=== PATIENT | female | born 1955 | race Caucasian/White ===

== ENCOUNTER 2020-12-28 16:27 | Emergency (ER) | payer MEDICARE, BC ==
[2020-12-28] MEDS ORDERED: Sodium Chloride 0.9% 10 ML Syringe FLUSH PRN (17:05)
[2020-12-28] MEDS ORDERED: Sodium Chloride 0.9% 1,000 ML IV SCH (17:15)
--- NOTE | 2020-12-28 18:12 | CT ---
Head CT Technique: Multiple axial sections were obtained through the brain. Intravenous contrast was not utilized. Reconstructed coronal and sagittal images were obtained. Comparison: No prior intracranial imaging is available. Findings: Ventricles along with basal cisterns and sulci over the convexities are within normal limits for the patient's age. Incidental basal ganglia calcification is seen. No other abnormal parenchymal densities are seen. No evidence of intracranial hemorrhage is seen. No midline shift or mass-effect is seen. Bone window settings were reviewed. Opacified left maxillary sinus is noted. Increased density is also noted within the left ethmoid sinus with opacified left frontal sinus. Mastoid sinuses show nothing acute. No acute calvarial abnormality is appreciated. Impression: 1. Sinus findings on the left side which appear to represent fairly prominent chronic sinusitis. 2. No acute intracranial abnormality is appreciated on noncontrast head CT study. Diagnostic code #2
--- NOTE | 2020-12-28 18:45 | EDM.PDOC ---
ED HPI GENERAL MEDICAL PROBLEM - General Chief Complaint: Neurological Problem Stated Complaint: SENT BY WALK IN Time Seen by Provider: 12/28/20 16:52 Source of Information: Reports: Patient History Limitations: Reports: No Limitations - History of Present Illness INITIAL COMMENTS - FREE TEXT/NARRATIVE: The patient presents from the walk in clinic for dizziness and a headache. She had COVID 19 in February of this year. 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 She also had some dizziness and trouble walking. She is seeing a therapist for this. She said today she went to the hairdresser and she put her back to wash her hair and she developed a headache to the base of her skull and she had dizzi ness. The dizziness was worse then she normally has. She has no new numbness or weakness. She has no fever, chills, cough, chest pain, shortness of breath, abdominal pain, nausea or vomiting. She went to the walk in clinic and they sent her up for a possible MRI. Her headache is gone now but she still has some dizziness. Onset: Sudden Duration: Hour(s): Location: Reports: Head Quality: Reports: Ache Severity: Moderate (but gone now) Improves with: Reports: None Worsens with: Reports: None Associated Symptoms: Reports: No Other Symptoms - Related Data Allergies Allergy/AdvReac Type Severity Reaction Status Date / Time contrast dye Allergy Cannot Uncoded 12/28/20 17:13 Remember Home Meds: Home Meds Meclizine [Antivert] 25 mg PO Q6H PRN #30 tab 12/28/20 [Rx] Past Medical History Gastrointestinal History: Reports: Other (See Below) Other Gastrointestinal History: liver transplant Psychiatric History: Reports: Depression Endocrine/Metabolic History: Reports: Diabetes, Type II, Hypothyroidism Oncologic (Cancer) History: Reports: Other (See Below) Other Oncologic History: skin cancer - Infectious Disease History Infectious Disease History: Reports: Novel Coronavirus Social & Family History - Tobacco Use Tobacco Use Status *Q: Former Tobacco User Used Tobacco, but Quit: Yes Month/Year Tobacco Last Used: 30 yrs - Caffeine Use Caffeine Use: Reports: Coffee, Soda, Tea - Recreational Drug Use Recreational Drug Use: No ED ROS GENERAL - Review of Systems Review Of Systems: See Below Constitutional: Reports: No Symptoms HEENT: Reports: No Symptoms Respiratory: Reports: No Symptoms Cardiovascular: Reports: No Symptoms Endocrine: Reports: No Symptoms GI/Abdominal: Reports: No Symptoms : Reports: No Symptoms Musculoskeletal: Reports: No Symptoms Skin: Reports: No Symptoms Neurological: Reports: Dizziness, Headache (gone now) ED EXAM, NEURO - Physical Exam Exam: See Below Exam Limited By: No Limitations General Appearance: Alert, No Apparent Distress Eye Exam: Right Eye: Nystagmus Ears: Normal External Exam Nose: Normal Inspection Head Exam: Atraumatic, Normocephalic Neck: Normal Inspection Respiratory/Chest: No Respiratory Distress, Lungs Clear, Normal Breath Sounds Cardiovascular: Regular Rate, Rhythm, No Edema, No Murmur GI/Abdominal: Soft, Non-Tender, No Organomegaly, No Mass Neurological: Alert, No Motor/Sensory Deficits, Oriented x 3 #1 Interpretation EKG Date: 12/28/20 Time: 17:53 Rhythm: NSR Rate (Beats/Min): 65 [place]: Normal P-Wave: Present QRS: Normal ST-T: Normal QT: Normal Course - Vital Signs Last Recorded V/S: Last Vital Signs Temp 97.2 F 12/28/20 17:03 Pulse 68 12/28/20 17:03 Resp 20 12/28/20 17:03 BP 153/82 H 12/28/20 17:03 Pulse Ox 100 12/28/20 17:03 - Orders/Labs/Meds Orders: Active Orders 24 hr Category Date Time Status Cardiac Monitoring [RC] . DIRECTED Care 12/28/20 17:05 Active Peripheral IV Care [RC] . DIRECTED Care 12/28/20 17:07 Active CORONAVIRUS COVID-19 GABRIELA [MOLEC] Stat Lab 12/28/20 18:05 Ordered Sodium Chloride 0.9% [Normal Saline] 1,000 ml Med 12/28/20 17:15 Active IV ASDIRECTED Sodium Chloride 0.9% [Saline Flush] Med 12/28/20 17:05 Active 10 ml FLUSH ASDIRECTED PRN Peripheral IV Insertion Adult [OM.PC] Stat Oth 12/28/20 17:05 Ordered Medication Orders Sodium Chloride (Normal Saline) 1,000 mls @ 125 mls/hr IV ASDIRECTED LARISA Last Admin: 12/28/20 17:53 Dose: 125 mls/hr Documented by: ERNIE Sodium Chloride (Sodium Chloride 0.9% 10 Ml Syringe) 10 ml FLUSH ASDIRECTED PRN PRN Reason: Keep Vein Open Last Admin: 12/28/20 17:53 Dose: 10 ml Documented by: ERNIE Labs: Laboratory Tests 12/28/20 12/28/20 12/28/20 Range/Units 17:43 17:43 17:43 WBC 3.93 L (3.98-10.04) K/mm3 RBC 4.08 (3.98-5.22) M/mm3 Hgb 12.0 (11.2-15.7) gm/dl Hct 35.6 (34.1-44.9) % MCV 87.3 (79.4-94.8) fl MCH 29.4 (25.6-32.2) pg MCHC 33.7 (32.2-35.5) g/dl RDW Std Deviation 43.0 (36.4-46.3) fL Plt Count 113 L (182-369) K/mm3 MPV 9.9 (9.4-12.3) fl Neut % (Auto) 48.5 (34.0-71.1) % Lymph % (Auto) 37.2 (19.3-51.7) % [place] % (Auto) 9.4 (4.7-12.5) % Eos % (Auto) 4.3 (0.7-5.8) Baso % (Auto) 0.3 (0.1-1.2) % Neut # (Auto) 1.91 (1.56-6.13) K/mm3 Lymph # (Auto) 1.46 (1.18-3.74) K/mm3 [place] # (Auto) 0.37 H (0.24-0.36) K/mm3 Eos # (Auto) 0.17 (0.04-0.36) K/mm3 Baso # (Auto) 0.01 (0.01-0.08) K/mm3 PT (9.7-12.0) SECONDS INR APTT (21.7-31.4) SECONDS Sodium 144 (136-145) mEq/L Potassium 3.9 (3.5-5.1) mEq/L Chloride 109 H (98-107) mEq/L Carbon Dioxide 27 (21-32) mEq/L Anion Gap 11.9 (5-15) BUN 29 H (7-18) mg/dL Creatinine 1.3 H (0.55-1.02) mg/dL Est Cr Clr Drug Dosing 39.63 mL/min Estimated GFR (MDRD) 41 (>60) mL/min BUN/Creatinine Ratio 22.3 H (14-18) Glucose 150 H (70-99) mg/dL POC Glucose (70-99) mg/dL Calcium 9.1 (8.5-10.1) mg/dL Magnesium 2.1 (1.8-2.4) mg/dL Total Bilirubin 0.9 (0.2-1.0) mg/dL AST 24 (15-37) U/L ALT 27 (14-59) U/L Alkaline Phosphatase 52 (46-116) U/L Ammonia 28 (11-32) umol/L Troponin I < 0.017 (0.00-0.056) ng/mL Total Protein 7.0 (6.4-8.2) g/dl Albumin 3.9 (3.4-5.0) g/dl Globulin 3.1 gm/dL Albumin/Globulin Ratio 1.3 (1-2) 12/28/20 12/28/20 Range/Units 17:43 17:43 WBC (3.98-10.04) K/mm3 RBC (3.98-5.22) M/mm3 Hgb (11.2-15.7) gm/dl Hct (34.1-44.9) % MCV (79.4-94.8) fl MCH (25.6-32.2) pg MCHC (32.2-35.5) g/dl RDW Std Deviation (36.4-46.3) fL Plt Count (182-369) K/mm3 MPV (9.4-12.3) fl Neut % (Auto) (34.0-71.1) % Lymph % (Auto) (19.3-51.7) % [place] % (Auto) (4.7-12.5) % Eos % (Auto) (0.7-5.8) Baso % (Auto) (0.1-1.2) % Neut # (Auto) (1.56-6.13) K/mm3 Lymph # (Auto) (1.18-3.74) K/mm3 [place] # (Auto) (0.24-0.36) K/mm3 Eos # (Auto) (0.04-0.36) K/mm3 Baso # (Auto) (0.01-0.08) K/mm3 PT 11.7 (9.7-12.0) SECONDS INR 1.06 APTT 28.4 (21.7-31.4) SECONDS Sodium (136-145) mEq/L Potassium (3.5-5.1) mEq/L Chloride (98-107) mEq/L Carbon Dioxide (21-32) mEq/L Anion Gap (5-15) BUN (7-18) mg/dL Creatinine (0.55-1.02) mg/dL Est Cr Clr Drug Dosing mL/min Estimated GFR (MDRD) (>60) mL/min BUN/Creatinine Ratio (14-18) Glucose (70-99) mg/dL POC Glucose 104 H (70-99) mg/dL Calcium (8.5-10.1) mg/dL Magnesium (1.8-2.4) mg/dL Total Bilirubin (0.2-1.0) mg/dL AST (15-37) U/L ALT (14-59) U/L Alkaline Phosphatase (46-116) U/L Ammonia (11-32) umol/L Troponin I (0.00-0.056) ng/mL Total Protein (6.4-8.2) g/dl Albumin (3.4-5.0) g/dl Globulin gm/dL Albumin/Globulin Ratio (1-2) Meds: Medications Generic Name Dose Route Start Last Admin Trade Name Freq PRN Reason Stop Dose Admin Sodium Chloride 1,000 mls @ 125 mls/hr 12/28/20 17:15 12/28/20 17:53 Normal Saline IV 125 mls/hr ASDIRECTED LARISA Administration Sodium Chloride 10 ml 12/28/20 17:05 12/28/20 17:53 Sodium Chloride 0.9% 10 Ml Syringe FLUSH 10 ml ASDIRECTED PRN Administration Keep Vein Open Discontinued Medications Generic Name Dose Route Start Last Admin Trade Name Freq PRN Reason Stop Dose Admin Meclizine HCl 25 mg 12/28/20 17:08 12/28/20 17:53 Meclizine 25 Mg Tab.Chew PO 12/28/20 17:09 25 mg ONETIME ONE Administration - Re-Assessments/Exams Free Text/Narrative Re-Assessment/Exam: 12/28/20 18:52 I ordered an IV NS at 125mL/hr, antivert 25mg PO, labs, EKG and a CT of her head. Her EKG shows a NSR with no acute changes. Her WBC was low at 3.93. Her PT and PTT look good. Her creatinine is slightly elevated at 1.3. Her glucose was 150. Her troponin is negative. 12/28/20 18:[address] shows sinus findings on the left side which appear to represent fairly prominent chronic sinusitis. No acute intracranial abnormality is appreciated on noncontrast head CT study. 12/28/20 19:00 She feels better with the antivert. I feel this is vertigo and not a stroke. I will give her some antivert for the dizziness. Departure - Departure Time of Disposition: 19:05 Disposition: Home, Self-Care 01 Condition: Good Clinical Impression: Vertigo - Discharge Information *PRESCRIPTION DRUG MONITORING PROGRAM REVIEWED*: Not Applicable *COPY OF PRESCRIPTION DRUG MONITORING REPORT IN PATIENT JO-ANN: Not Applicable Prescriptions: Meclizine [Antivert] 25 mg PO Q6H PRN #30 tab PRN Reason: Dizziness Referrals: Ricardo Stovall MD [Primary Care Provider] - 1 Week Forms: ED Department Discharge Additional Instructions: Drink plenty of fluids. Take your medications as prescribed. Take the antivert every 6 hours as needed for dizziness. Please return if you are worse. Sepsis Event Note (ED) - Focused Exam Vital Signs: Vital Signs Temp Pulse Resp BP Pulse Ox 12/28/20 17:03 97.2 F 68 20 153/82 H 100 - My Orders Last 24 Hours: My Active Orders 12/28/20 17:05 Cardiac Monitoring [RC] . DIRECTED Sodium Chloride 0.9% [Saline Flush] 10 ml FLUSH ASDIRECTED PRN Peripheral IV Insertion Adult [OM.PC] Stat 12/28/20 17:07 Peripheral IV Care [RC] . DIRECTED 12/28/20 17:15 Sodium Chloride 0.9% [Normal Saline] 1,000 ml IV ASDIRECTED 12/28/20 18:05 CORONAVIRUS COVID-19 GABRIELA [MOLEC] Stat - Assessment/Plan Last 24 Hours: My Active Orders 12/28/20 17:05 Cardiac Monitoring [RC] . DIRECTED Sodium Chloride 0.9% [Saline Flush] 10 ml FLUSH ASDIRECTED PRN Peripheral IV Insertion Adult [OM.PC] Stat 12/28/20 17:07 Peripheral IV Care [RC] . DIRECTED 12/28/20 17:15 Sodium Chloride 0.9% [Normal Saline] 1,000 ml IV ASDIRECTED 12/28/20 18:05 CORONAVIRUS COVID-19 GABRIELA [MOLEC] Stat
== END 2020-12-28 19:18 | disposition home or self-care (01) ==
LOC: JD.ED 16:27
DX: R42 Dizziness and giddiness (principal); R51.9 Headache, unspecified; E11.9 Type 2 diabetes mellitus without complications; Z91.041 Radiographic dye allergy status; Z87.891 Personal history of nicotine dependence; Z20.822 Contact with and (suspected) exposure to COVID-19
CPT/HCPCS: 36415; 70450; 70450-26; 80053; 82140; 82947; 83735; 84484; 85025; 85610; 85730; 93005; 99284-25; A9270-GY; J7030; U0002

== ENCOUNTER 2021-04-19 13:20 | Emergency (ER) | payer MEDICARE, BC ==
[2021-04-19] MEDS ORDERED: Sodium Chloride 0.9% 10 ML Syringe FLUSH PRN (14:02)
[2021-04-19] MEDS ORDERED: Ondansetron 4 MG/2 ML SDV IVPUSH ONE (14:02)
[2021-04-19] MEDS ORDERED: HYDROmorphone 0.5 MG/0.5 ML Syringe IVPUSH ONE ×3 (14:03→20:45)
[2021-04-19] MEDS ORDERED: diphenhydrAMINE 50 MG/ML SDV IVPUSH ONE (14:03)
[2021-04-19] MEDS ORDERED: Sodium Chloride 0.9% 1,000 ML IV SCH (14:15)
[2021-04-19] MEDS ORDERED: methylPREDNISolone Sodium Succinate 125 MG/2 ML SDV IVPUSH ONE (14:21)
[2021-04-19] MEDS ORDERED: Sodium Chloride 0.9% 1,000 ML IV ONE (17:58)
[2021-04-19 18:26] LABS: CORONAVIRUS COVID-19 NAA POSITIVE (NEGATIVE)
== END 2021-04-19 21:30 | disposition home or self-care (01) ==
LOC: JD.ED 13:20
DX: K80.50 Calculus of bile duct without cholangitis or cholecystitis without obstruction (principal); E11.9 Type 2 diabetes mellitus without complications; E03.9 Hypothyroidism, unspecified; Z91.041 Radiographic dye allergy status; Z79.4 Long term (current) use of insulin; Z86.16 Personal history of COVID-19; Z20.822 Contact with and (suspected) exposure to COVID-19; Z94.4 Liver transplant status
CPT/HCPCS: 0240U; 36415; 74176; 80053; 81001; 82247; 82248; 82977; 83690; 85025; 85610; 85730; 86140; 96374; 96375; 96376; 99284; J1170; J2405; J7030; 99285; J3490

== ENCOUNTER 2021-07-31 14:41 | Emergency (ER) | payer MEDICARE, BC ==
[2021-07-31] MEDS ORDERED: Diphtheria,Pertussis(Acell),Tetanus Vaccine 0.5 ML Syringe IM ONE (15:30)
== END 2021-07-31 18:00 ==
LOC: JD.ED 14:41
DX: S06.6X0A Traumatic subarachnoid hemorrhage without loss of consciousness, initial encounter (principal); K75.4 Autoimmune hepatitis; E03.9 Hypothyroidism, unspecified; E11.9 Type 2 diabetes mellitus without complications; Z91.041 Radiographic dye allergy status; Z86.16 Personal history of COVID-19; Z79.4 Long term (current) use of insulin; Z94.4 Liver transplant status; Z23 Encounter for immunization; W18.30XA Fall on same level, unspecified, initial encounter
CPT/HCPCS: 36415; 70450; 70450-26; 80053; 85025; 85610; 85730; 90471; 90715; 99284; 99284-25